=== PATIENT | female | born 2000 | race Caucasian/White ===

== ENCOUNTER 2019-05-17 11:19 | Outpatient (CLI) | payer OTHER ==
--- NOTE | 2019-05-17 12:36 | Non Stress Test Report ---
Non Stress Test Datetime Report Generated by CPN: 05/17/2019 12:35 DEMOGRAPHIC EGA NST: 34.6 INDICATION Indication for Study: Ordered by Provider MONITORING Monitor Explained: Monitor Explained; Test Explained Time on Monitor: 05/17/2019 11:27 Time off Monitor: 05/17/2019 12:33 NST Duration: 66 NST INTERVENTIONS NST Interventions: Reposition Patient Physician Notified NST: PAlissa, CNM BABY A: [id number] BABY A Movement : Present Contraction Frequency : 0 FHR Baseline : 130 Accelerations : 15X15 Decelerations : None Variability : Moderate 6-25bpm NST Review: Meets Criteria for Reactive NST NST Review and Verified By : QUIN Morley Results: Reactive NST REPORT Report Trigger: Send Report
== END 2019-05-17 12:37 | disposition home or self-care (01) ==
LOC: LC 11:19
PROVIDERS: ATTEND Obstetrics & Gynecology Gynecology
PROC: 4A1HXCZ Monitoring of Products of Conception, Cardiac Rate, External Approach (ICD-10-PCS; principal; 2019-05-17)
DX: Z34.83 Encounter for supervision of other normal pregnancy, third trimester (principal)
CPT/HCPCS: 59025

== ENCOUNTER 2019-05-24 20:31 | Outpatient (CLI) | payer OTHER ==
[2019-05-24 21:21] LABS: APPEARANCE,URINE CLEAR; BILIRUBIN,URINE NEGATIVE (NEGATIVE); COLOR,URINE YELLOW; GLUCOSE, URINE NEGATIVE (NEGATIVE); KETONES,URINE NEGATIVE (NEGATIVE); LEUKOCYTE ESTERASE,URINE NEGATIVE (NEGATIVE); NITRITE,URINE NEGATIVE (NEGATIVE); PROTEIN,URINE NEGATIVE (NEGATIVE); UROBILINOGEN,URINE NEGATIVE mg/dL (<2.0)
[2019-05-24 21:46] LABS: URINE AMPHETAMINES SCREEN NEGATIVE; URINE BARBITURATES SCREEN NEGATIVE; URINE BENZODIAZEPINES SCREEN NEGATIVE; URINE COCAINE SCREEN NEGATIVE; URINE MARIJUANA (THC) SCREEN NEGATIVE; URINE METHADONE SCREEN NEGATIVE; URINE PHENCYCLIDINE SCREEN NEGATIVE
--- NOTE | 2019-05-24 22:50 | Non Stress Test Report ---
Non Stress Test Datetime Report Generated by CPN: 05/24/2019 22:49 DEMOGRAPHIC EGA NST: 35.6 INDICATION Indication for Study: Ordered by Provider URINE RESULTS Urine Protein, NST: Negative Urine Ketones - NST: Negative Urine Glucose - NST: Negative Urine Blood - NST: Negative MONITORING Monitor Explained: Monitor Explained; Test Explained; Patient Verbalized Understanding Time on Monitor: 05/24/2019 21:00 Time off Monitor: 05/24/2019 21:45 NST Duration: 45 NST INTERVENTIONS NST Interventions: None Physician Notified NST: Sarkar BABY A: [id number] BABY A Movement : Present Contraction Frequency : 1-5 FHR Baseline : 130 Accelerations : 15X15 Decelerations : None Variability : Moderate 6-25bpm NST Review: Meets Criteria for Reactive NST NST Review and Verified By : Terri Veliz RN NST Results: Reactive NST REPORT Report Trigger: Send Report
== END 2019-05-24 22:48 | disposition home or self-care (01) ==
LOC: LC 20:31
PROVIDERS: ATTEND Obstetrics & Gynecology Gynecology
PROC: 4A1HXCZ Monitoring of Products of Conception, Cardiac Rate, External Approach (ICD-10-PCS; principal; 2019-05-24)
DX: O47.03 False labor before 37 completed weeks of gestation, third trimester (principal); Z3A.35 35 weeks gestation of pregnancy
CPT/HCPCS: 59025; 80307; 81001

== ENCOUNTER 2019-06-26 09:36 | Outpatient (CLI) | payer OTHER ==
[2019-06-26 10:12] LABS: APPEARANCE,URINE SLIGHTLY-CLOUDY; BILIRUBIN,URINE NEGATIVE (NEGATIVE); COLOR,URINE YELLOW; GLUCOSE, URINE NEGATIVE (NEGATIVE); KETONES,URINE NEGATIVE (NEGATIVE); LEUKOCYTE ESTERASE,URINE TRACE (NEGATIVE); NITRITE,URINE NEGATIVE (NEGATIVE); PROTEIN,URINE NEGATIVE (NEGATIVE); URINE SPECIFIC GRAVITY 1.017; UROBILINOGEN,URINE NEGATIVE mg/dL (<2.0)
[2019-06-26 11:48] LABS: URINE AMPHETAMINES SCREEN NEGATIVE; URINE BARBITURATES SCREEN NEGATIVE; URINE BENZODIAZEPINES SCREEN NEGATIVE; URINE COCAINE SCREEN NEGATIVE; URINE MARIJUANA (THC) SCREEN NEGATIVE; URINE METHADONE SCREEN NEGATIVE; URINE PHENCYCLIDINE SCREEN NEGATIVE
--- NOTE | 2019-06-26 22:51 | Non Stress Test Report ---
Non Stress Test Datetime Report Generated by CPN: 06/26/2019 22:51 DEMOGRAPHIC EGA NST: 40.4 INDICATION Indication for Study: Other - Please document "Reason for NST Other" in box below. Indication for Study: Other - Please document "Reason for NST Other" in box below. Indication for Study (NST) Other: Contractions Indication for Study (NST) Other: post dates labor check VITAL SIGNS Temperature - NST: 98.8 Pulse - NST: 101 RESP - NST: 16 NBPSYS NST: 131 NBPDIA NST: 82 MONITORING Monitor Explained: Monitor Explained; Test Explained; Patient Verbalized Understanding Monitor Explained: Monitor Explained; Test Explained; Patient Verbalized Understanding Time on Monitor: 06/26/2019 09:45 Time off Monitor: 06/26/2019 10:20 NST Duration: 35 NST INTERVENTIONS NST Interventions: None NST Interventions: PO Hydration Physician Notified NST: A Joshi CNM BABY A: [id number] BABY A Movement : Present Contraction Frequency : 5-6 FHR Baseline : 145 Accelerations : 15X15 Decelerations : None Variability : Moderate 6-25bpm NST Review: Meets Criteria for Reactive NST NST Review and Verified By : Kamille Camp RNC NST Results: Reactive NST REPORT Report Trigger: Send Report
== END 2019-06-26 10:26 | disposition home or self-care (01) ==
LOC: LC 09:36
PROVIDERS: ATTEND Obstetrics & Gynecology
PROC: 4A1HXCZ Monitoring of Products of Conception, Cardiac Rate, External Approach (ICD-10-PCS; principal; 2019-06-26)
DX: O47.1 False labor at or after 37 completed weeks of gestation (principal); O48.0 Post-term pregnancy; Z3A.40 40 weeks gestation of pregnancy
CPT/HCPCS: 59025; 80307; 81005

== ENCOUNTER 2019-06-26 23:09 | Inpatient (IN) | payer OTHER ==
[2019-06-27 01:15] LABS: APPEARANCE,URINE SLIGHTLY-CLOUDY; BILIRUBIN,URINE NEGATIVE (NEGATIVE); COLOR,URINE YELLOW; GLUCOSE, URINE NEGATIVE (NEGATIVE); KETONES,URINE NEGATIVE (NEGATIVE); LEUKOCYTE ESTERASE,URINE NEGATIVE (NEGATIVE); NITRITE,URINE NEGATIVE (NEGATIVE); PROTEIN,URINE NEGATIVE (NEGATIVE); UROBILINOGEN,URINE NEGATIVE mg/dL (<2.0)
[2019-06-27] MEDS ORDERED: RINGERS SOLUTION,LACTATED 1,000 ML IV PRN (01:46)
[2019-06-27 01:52] LABS: URINE AMPHETAMINES SCREEN NEGATIVE; URINE BARBITURATES SCREEN NEGATIVE; URINE BENZODIAZEPINES SCREEN NEGATIVE; URINE COCAINE SCREEN NEGATIVE; URINE MARIJUANA (THC) SCREEN NEGATIVE; URINE METHADONE SCREEN NEGATIVE; URINE PHENCYCLIDINE SCREEN NEGATIVE
[2019-06-27] MEDS ORDERED: LIDOCAINE 1% INJ-PF (10 MG/ML) 30 ML SDV ONE (02:02)
[2019-06-27] MEDS ORDERED: MISOPROSTOL 0.2 MG TABLET ONE (02:02)
[2019-06-27] MEDS ORDERED: OXYTOCIN 10 UNIT/ML VIAL ONE (02:02)
[2019-06-27] MEDS ORDERED: OXYTOCIN/NORMAL SALINE 20 UNIT/1,000 ML RTUINJ ONE (02:02)
[2019-06-27 02:16] LABS: ABSOLUTE EOSINOPHILS # (AUTO) 0.2 10^3/uL (0.0-0.6); ABSOLUTE LYMPHOCYTES (AUTO) 2.4 10^3/uL (0.5-4.7); ABSOLUTE MONOCYTES (AUTO) 1.1 10^3/uL (0.1-1.4); BASOPHILS % (AUTO) 0.3 % (0-2); EOSINOPHILS % (AUTO) 1.5 % (0-6); HEMOGLOBIN 11.2 g/dL (12.0-15.5); LYMPHOCYTES % (AUTO) 17.4 % (13-45); MEAN CORPUSCULAR HEMOGLOBIN 27.1 pg (27.0-33.4); MEAN CORPUSCULAR HGB CONC 32.9 g/dL (32.0-36.0); MEAN CORPUSCULAR VOLUME 82 fl (80-97); MONOCYTES % (AUTO) 7.8 % (3-13); PLATELET COUNT 222 10^3/uL (150-450); RED BLOOD COUNT 4.14 10^6/uL (3.72-5.28); TOTAL CELLS COUNTED % (AUTO) 100 %; WHITE BLOOD COUNT 13.7 10^3/uL (4.0-10.5)
[2019-06-27] MEDS ORDERED: RINGERS SOLUTION,LACTATED 1,000 ML IV ONE (02:30)
[2019-06-27] MEDS ORDERED: EPHEDRINE SULFATE INJ 50 MG/1 ML AMPULE ONE (05:18)
[2019-06-27] MEDS ORDERED: PHENYLEPHRINE HCL INJ/PF 10 MG/1 ML SDV ONE (05:18)
[2019-06-27] MEDS ORDERED: FENTANYL CITRATE INJ/PF 100 MCG/2 ML AMPUL ONE (05:18)
[2019-06-27] MEDS ORDERED: FENTANYL/BUPIVACAINE/NS/PF 300 MCG/150 ML RTUINJ EPI ONE (05:19)
[2019-06-27] MEDS ORDERED: BUPIVACAINE HCL 0.25 % INJ/PF (2.5 MG/1 ML) 30 ML VIAL ONE (05:19)
--- NOTE | 2019-06-27 06:55 | Admission Physical ---
Datetime Report Generated by CPN: 06/27/2019 06:55 CURRENT ADMISSION Chief Complaint: Uterine Contractions Indication for Induction: Not Applicable Admit Impression : Term, Intrauterine ; Active Labor Admit Plan: Admit to Unit; Initiate Labor Augmentation Protocol ALLERGIES Medication Allergies: No Medication Allergies: No Known Allergies (06/26/2019) Latex: No Latex Allergies OBSTETRICAL HISTORY EDC: 06/22/2019 00:00 : 1 Para: 0 Term: 0 : 0 SAB: 0 IAB: 0 Ectopic: 0 Livin Cesareans: 0 VBACs: 0 Multiple Births: 0 Gestational Diabetes: No Rh Sensitization: No Incompetent Cervix: No MIKE: No Infertility: No ART Treatment: No Uterine Anomaly: No IUGR: No Hx Previous C/S: No Macrosomia: No Hx Loss/Stillborn: No PIH: No Hx : No Placenta Previa/Abruption: No Depression/PP Depression: Yes PTL/PROM: No Post Hemorrhage: No Current Procedures: Ultrasound; NST Obstetrical History Comments: G1- current SEE RECORDS Alcohol: No Marijuana : No Cocaine: No Other Illicit Drugs: No Cigarettes: Never Smoker. [id number] MEDICAL HISTORY Diabetes: No Blood Transfusion: No Pulmonary Disease (Asthma, TB): No Breast Disease: No Hypertension: No House Carpenter Helper Surgery: No Heart Disease: No Hosp/Surgery: No Autoimmune Disorder: No Anesthetic Complications: No Kidney Disease: No Abnormal Pap Smear: No Neuro/Epilepsy: No Psychiatric Disorders: No Other Medical Diseases: No Hepatitis/Liver Disease: No Significant Family History: No Varicosities/Phlebitis: No Trauma/Violence : No Thyroid Dysfunction: No Medical History Comments: depression INFECTIOUS HISTORY Gonorrhea: No Genital Herpes: No Chlamydia: No Tuberculosis: No Syphilis: No Hepatitis: No HIV/AIDS Exposure: No Rash or Viral Illness: No HPV: No PHYSICAL EXAM General: Normal HEENT: Normal Neurologic: Normal Thyroid: Normal Heart: Normal Lungs: Normal Breast: Normal Back: Normal Abdomen: Normal Genitourinary Exam: Normal Extremities: Normal DTRs: Normal Pelvic Type: Adequate Vital Signs: Reviewed Details Vital Signs: AROM done at 0640 VAGINAL EXAM Dilatation: 5 Effacement: 100 Station: -1 MEMBRANES Pooling: Positive Membranes: Ruptured Amniotic Fluid Color: Clear FETUS A EGA: 40.5 Monitoring: External US FHR- Baseline: 150 Variability: Moderate 6-25bpm Accelerations: 15X15 Decelerations: None FHR Category: Category I Estimated Weight (gm): 3500 Presentation: Vertex PLANS FOR LABOR AND DELIVERY Labor and Delivery: None Pain Management: Natural Feeding Preference: Breast Benefit of Breast Feed Discussed: Yes Circumcision: Yes INFORMED CONSENT Signature: with User ID: [email or web address]
[2019-06-27] MEDS ORDERED: OXYTOCIN/NORMAL SALINE 20 UNIT/1,000 ML RTUINJ IV PRN ×2 (14:47→18:17)
[2019-06-27] MEDS ORDERED: ONDANSETRON HCL INJ/PF 4 MG/2 ML SDV IV ONE (15:45)
[2019-06-27] MEDS ORDERED: ONDANSETRON HCL INJ/PF 4 MG/2 ML SDV ONE (15:48)
[2019-06-27] MEDS ORDERED: LIDOCAINE 2% JELLY 5 ML TUBE ONE (16:31)
[2019-06-27] MEDS ORDERED: DIBUCAINE 1% OINTMENT 56 GM TP PRN (18:17)
[2019-06-27] MEDS ORDERED: MEASLES,MUMPS&RUBELLA VACC/PF 0.5 ML VIAL SUBCUT PRN (18:17)
[2019-06-27] MEDS ORDERED: PROMETHAZINE HCL 25 MG TABLET PO PRN (18:17)
[2019-06-27] MEDS ORDERED: BENZOCAINE/MENTHOL AEROSOL SPRAY 56 ML TOP PRN (18:17)
[2019-06-27] MEDS ORDERED: ZOLPIDEM TARTRATE 5 MG TABLET PO PRN (18:17)
[2019-06-27] MEDS ORDERED: ACETAMINOPHEN WITH CODEINE #3 TABLET PO PRN (18:17)
[2019-06-27] MEDS ORDERED: PSEUDOEPHEDRINE HCL 30 MG TABLET PO PRN (18:17)
[2019-06-27] MEDS ORDERED: NA PHOS,M-B/NA PHOS,DI-BA (ADULT) 133 ML ENEMA PR PRN (18:17)
[2019-06-27] MEDS ORDERED: DIPHENHYDRAMINE HCL 25 MG CAPSULE PO PRN (18:17)
[2019-06-27] MEDS ORDERED: GLYCERIN/WITCH HAZEL LEAF 1 EACH MED..WIPE TP PRN (18:17)
[2019-06-27] MEDS ORDERED: PROMETHAZINE HCL INJ 25 MG/1 ML VIAL IV PRN (18:17)
[2019-06-27] MEDS ORDERED: PROMETHAZINE HCL 25 MG SUPP.RECT PR PRN (18:17)
[2019-06-27] MEDS ORDERED: ACETAMINOPHEN 650 MG SUPP.RECT PR PRN (18:17)
[2019-06-27] MEDS ORDERED: DIPH/PERTUSS(ACELL)/TETANUS VAC/PF 0.5 ML SYR (>=10YO) IM PRN (18:17)
[2019-06-27] MEDS ORDERED: MAGNESIUM HYDROXIDE SUSP 30 ML UDCUP PO PRN (18:17)
[2019-06-27] MEDS ORDERED: ACETAMINOPHEN WITH CODEINE #3 TABLET ONE (18:42)
[2019-06-27] MEDS: ACETAMINOPHEN WITH CODEINE #3 TABLET PO PRN (18:46)
[2019-06-27] MEDS: FAMOTIDINE 20 MG TABLET PO SCH (22:31)
[2019-06-28] MEDS: IBUPROFEN 800 MG TABLET PO SCH ×4 (00:43→17:28)
[2019-06-28 07:15] LABS: HEMATOCRIT 34.1 % (36.0-47.0); MEAN CORPUSCULAR HEMOGLOBIN 26.8 pg (27.0-33.4); MEAN CORPUSCULAR HGB CONC 32.3 g/dL (32.0-36.0); MEAN CORPUSCULAR VOLUME 83 fl (80-97); PLATELET COUNT 256 10^3/uL (150-450); RED BLOOD COUNT 4.11 10^6/uL (3.72-5.28); RED CELL DISTRIBUTION WIDTH 13.7 % (11.5-14.0); WHITE BLOOD COUNT 26.4 10^3/uL (4.0-10.5)
[2019-06-28] MEDS: FAMOTIDINE 20 MG TABLET PO SCH ×2 (09:42→21:16)
[2019-06-28] MEDS: FERROUS SULFATE 325 MG TABLET PO SCH ×2 (09:42→17:28)
[2019-06-28] MEDS: DOCUSATE SODIUM 100 MG CAPSULE PO SCH ×2 (09:42→17:28)
[2019-06-28] MEDS: PRENATAL VITAMIN W DHA CAPSULE PO SCH (09:42)
[2019-06-28] MEDS: SENNOSIDES/DOCUSATE 8.6-50 MG 1 EACH TABLET PO SCH (09:42)
--- NOTE | 2019-06-28 11:14 | PDOC PROGRESS REPORT ---
Subjective-OB Progress Note for:: 06/28/19 Subjective: c/o tailbone pain-has donut ring Physical Exam (OB) Vital Signs: Temp Pulse Resp BP Pulse Ox 97.4 F 77 14 109/72 100 06/28/19 08:50 06/28/19 08:50 06/28/19 08:50 06/28/19 08:50 06/28/19 08:50 Intake & Output 06/27/19 06/28/19 06/29/19 06:59 06:59 06:59 Intake Total 1000 Balance 1000 Weight 77.4 kg - PIH/Pre-Eclampsia Headache: Absent Epigastric Pain: No Visual Changes: No - Lochia Lochia Amount: Scant < 10 ml Lochia Color: Rubra/Red - Abdomen Description: Soft Hernia Present: No Bowel Sounds: Normoactive Flatus Presence: Present Stool: No Fundal Description: Firm, Midline Fundal Height: u/u - u/2 Abdomen Note: Elevated wbc- will repeat in am. Is afebile. Objective-Diagnostic Laboratory: 06/28/19 06:29 06/28/19 06/28/19 06:29 06:29 WBC 26.4 H RBC 4.11 Hgb 11.0 L Hct 34.1 L MCV 83 MCH 26.8 L MCHC 32.3 RDW 13.7 Plt Count 256 Blood Type A NEGATIVE
[2019-06-28] MEDS: ACETAMINOPHEN WITH CODEINE #3 TABLET PO PRN (16:54)
[2019-06-28] MEDS ORDERED: HYDROXYZINE PAMOATE 25 MG CAPSULE PO ONE (18:30)
[2019-06-29] MEDS: IBUPROFEN 800 MG TABLET PO SCH ×2 (05:05→11:48)
[2019-06-29 06:31] LABS: HEMATOCRIT 30.1 % (36.0-47.0); HEMOGLOBIN 9.8 g/dL (12.0-15.5); MEAN CORPUSCULAR HEMOGLOBIN 27.2 pg (27.0-33.4); MEAN CORPUSCULAR HGB CONC 32.6 g/dL (32.0-36.0); MEAN CORPUSCULAR VOLUME 83 fl (80-97); PLATELET COUNT 202 10^3/uL (150-450); RED BLOOD COUNT 3.61 10^6/uL (3.72-5.28); RED CELL DISTRIBUTION WIDTH 13.7 % (11.5-14.0); WHITE BLOOD COUNT 14.9 10^3/uL (4.0-10.5)
--- NOTE | 2019-06-29 08:52 | PDOC PROGRESS REPORT ---
Subjective-OB Progress Note for:: 06/29/19 Subjective: Doing well, no c/o, A neg, needs Rhogam, . eating well, mod lochia Physical Exam (OB) Vital Signs: Temp Pulse Resp BP Pulse Ox 97.8 F 74 16 103/50 L 100 06/28/19 20:00 06/28/19 20:00 06/28/19 20:00 06/28/19 20:00 06/28/19 20:00 Intake & Output 06/28/19 06/29/19 06/30/19 06:59 06:59 06:59 Intake Total 1000 Balance 1000 - PIH/Pre-Eclampsia Headache: Absent Epigastric Pain: No Visual Changes: No - Lochia Lochia Amount: Small 10-25 ml Lochia Color: Rubra/Red - Abdomen Description: Soft, Round Hernia Present: No Fundal Description: Firm, Midline Fundal Height: u/u - u/2 Objective-Diagnostic Laboratory: 06/29/19 05:37 06/28/19 06/29/19 06:29 05:37 WBC 14.9 H RBC 3.61 L Hgb 9.8 L Hct 30.1 L MCV 83 MCH 27.2 MCHC 32.6 RDW 13.7 Plt Count 202 Blood Type A NEGATIVE Assessment and Plan(PN) - Assessment and Plan (1) Vaginal delivery Is this a current diagnosis for this admission?: Yes (2) First degree perineal laceration during delivery Is this a current diagnosis for this admission?: Yes - Time Spent with Patient Time with patient: Less than 15 minutes Medications reviewed and adjusted accordingly: Yes - Disposition Anticipated Discharge: Home Within: within 24 hours
--- NOTE | 2019-06-29 08:59 | PDOC DISCHARGE SUMMARY ---
Impression - Admit/DC Date/PCP Admission Date/Primary Care Provider: 06/27/19 01:48 KAI WEISS MD Discharge Date: 06/29/19 - Discharge Diagnosis (1) Vaginal delivery Is this a current diagnosis for this admission?: Yes (2) First degree perineal laceration during delivery Is this a current diagnosis for this admission?: Yes - Additional Information Resuscitation Status: Full Code Discharge Diet: As Tolerated, Regular Discharge Activity: Activity As Tolerated, No Lifting Over 10 Pounds, No Lifting/Push/Pulling, Pelvic Rest Referrals: [facility] [Provider Group] (rtc Tuesday) Home Medications: No122/Iron/Folic Acid [ Multi Tablet] 1 tab PO DAILY 05/17/19 HPI Gestational Age: 40.5 Reason(s) for Admission: Onset of Labor Admission Note: augmented with Pitocin, AROM Procedures: NST, Ultrasound Intrapartum Procedure(s): Vacuum Extraction - VE for maternal exhaustion and FHT decreased 90-110 Complication(s): Laceration-Labial Laceration-Degree: 1st Hospital Course Hospital Course: routine Results Laboratory Results: WBC 14.9 10^3/uL (4.0-10.5) H 06/29/19 05:37 RBC 3.61 10^6/uL (3.72-5.28) L 06/29/19 05:37 Hgb 9.8 g/dL (12.0-15.5) L 06/29/19 05:37 Hct 30.1 % (36.0-47.0) L 06/29/19 05:37 MCV 83 fl (80-97) 06/29/19 05:37 MCH 27.2 pg (27.0-33.4) 06/29/19 05:37 MCHC 32.6 g/dL (32.0-36.0) 06/29/19 05:37 RDW 13.7 % (11.5-14.0) 06/29/19 05:37 Plt Count 202 10^3/uL (150-450) 06/29/19 05:37 Lymph % (Auto) 17.4 % (13-45) 06/27/19 01:58 [place] % (Auto) 7.8 % (3-13) 06/27/19 01:58 Eos % (Auto) 1.5 % (0-6) 06/27/19 01:58 Baso % (Auto) 0.3 % (0-2) 06/27/19 01:58 Absolute Neuts (auto) 10.0 10^3/uL (1.7-8.2) H 06/27/19 01:58 Absolute Lymphs (auto) 2.4 10^3/uL (0.5-4.7) 06/27/19 01:58 Absolute Monos (auto) 1.1 10^3/uL (0.1-1.4) 06/27/19 01:58 Absolute Eos (auto) 0.2 10^3/uL (0.0-0.6) 06/27/19 01:58 Absolute Basos (auto) 0.0 10^3/uL (0.0-0.2) 06/27/19 01:58 Seg Neutrophils % 73.0 % (42-78) 06/27/19 01:58 Urine Color YELLOW 06/26/19 23:15 Urine Appearance SLIGHTLY-CLOUDY 06/26/19 23:15 Urine pH 7.0 (5.0-9.0) 06/26/19 23:15 Ur Specific [place] 1.010 06/26/19 23:15 Urine Protein NEGATIVE mg/dL (NEGATIVE) 06/26/19 23:15 Urine Glucose (UA) NEGATIVE mg/dL (NEGATIVE) 06/26/19 23:15 Urine Ketones NEGATIVE mg/dL (NEGATIVE) 06/26/19 23:15 Urine Blood MODERATE (NEGATIVE) H 06/26/19 23:15 Urine Nitrite NEGATIVE (NEGATIVE) 06/26/19 23:15 Urine Bilirubin NEGATIVE (NEGATIVE) 06/26/19 23:15 Urine Urobilinogen NEGATIVE mg/dL (<2.0) 06/26/19 23:15 Ur Leukocyte Esterase NEGATIVE (NEGATIVE) 06/26/19 23:15 Urine Ascorbic Acid NEGATIVE (NEGATIVE) 06/26/19 23:15 Urine Opiates Screen NEGATIVE 06/26/19 23:15 Urine Methadone Screen NEGATIVE 06/26/19 23:15 Ur Barbiturates Screen NEGATIVE 06/26/19 23:15 Ur Phencyclidine Scrn NEGATIVE 06/26/19 23:15 Ur Amphetamines Screen NEGATIVE 06/26/19 23:15 U Benzodiazepines Scrn NEGATIVE 06/26/19 23:15 Urine Cocaine Screen NEGATIVE 06/26/19 23:15 U Marijuana (THC) Screen NEGATIVE 06/26/19 23:15 RPR NONREACTIVE (NONREACTIVE) 06/27/19 01:58 Blood Type A NEGATIVE 06/28/19 06:29 Antibody Screen POSITIVE 06/27/19 01:58 Antibody Identification RHOGAM INDUCED ANTI-D 06/27/19 01:58 Screen NEGATIVE 06/28/19 06:29 Plan Health Concerns: routine, take PNV's Plan of Treatment: routine PP care, may sit in cool tubbath Goals: routine PP course Time Spent: Less than 30 Minutes
[2019-06-29] MEDS: DOCUSATE SODIUM 100 MG CAPSULE PO SCH (09:43)
[2019-06-29] MEDS: PRENATAL VITAMIN W DHA CAPSULE PO SCH (09:43)
[2019-06-29] MEDS: FERROUS SULFATE 325 MG TABLET PO SCH (09:43)
[2019-06-29] MEDS: ACETAMINOPHEN WITH CODEINE #3 TABLET PO PRN (09:43)
[2019-06-29] MEDS: FAMOTIDINE 20 MG TABLET PO SCH (09:43)
[2019-06-29] MEDS: SENNOSIDES/DOCUSATE 8.6-50 MG 1 EACH TABLET PO SCH (09:43)
[2019-06-29 12:33] VITALS: BP 103/50
--- NOTE | 2019-07-03 07:51 | Delivery Summary ---
Del Sum A-C Datetime Report Generated by CPN: 07/03/2019 07:51 DELIVERY PERSONNEL DELIVERY PERSONNEL: [id number] Delivery Doctor:: Addis Salvador MD Labor and Delivery Nurse:: Bernarda Borden RNdrosophere operator Nurse:: Wilma Dash RN Nursery Nurse:: Kate Soto RN Nursery Nurse:: el lomax rn Curam Developer/[employer] SUPERVISOR: Lupe Morales CST Additional Personnel: : Kamille Shukla RNC MATERNAL INFORMATION Delivery Anesthesia: Epidural Medications After Delivery: Pitocin Bolus-Please Comment Meds After Delivery Comment: itocin 20 units in 1000 ml nss open for bolus Estimated Blood Loss (ml): 300 Delivery QBL: 300 Maternal Complications: None Provider Comments: Called to patients room with patient pushing. Station +2. Continued pushing with change in station to +3. SHe was becoming exhausted and heart rate dropped to 90-110 bpm. Discussed use of vacuum to assist. RIsk and benefits reviewed. She and agree. Kiwi vacuum applied approx 2-3 cm from posterior fontanel over sagittal suture. Suction applied. Gentle traction applied during maternal pushing x2 and delivered in the MAYRA presentation. After delivery of the head, the shoulders and rest of the body followed without difficulty. Cord clamping delayed for 30 seconds as infant was vigorous. Infant to Mother's chest. Both stable. LABOR SUMMARY EDC: 06/22/2019 00:00 No. Babies in Womb: 1 Attempted: No Labor Anesthesia: Epidural LABOR INFORMATION Reason for Induction: Not Applicable Onset of Labor: 06/27/2019 06:30 Complete Dilatation: 06/27/2019 15:22 Oxytocin: Augmentation Group B Beta Strep: Negative Antibiotics # of Doses: 0 Steroids Given: None Reason Steroids Not Administered: Not Applicable MEMBRANES Membranes Rupture Method: Artificial Rupture of Membranes: 06/27/2019 06:30 Length of Rupture (hr): 11.38 Amniotic Fluid Color: Clear Amniotic Fluid Amount: Moderate Amniotic Fluid Odor: None STAGES OF LABOR Stage 1 hr: 8 Stage 1 min: 52 Stage 2 hr: 2 Stage 2 min: 31 Stage 3 hr: 0 Stage 3 min: 5 Total Time in Labor hr: 11 Total Time in Labor min: 28 VAGINAL DELIVERY Episiotomy: None Other Laceration: Bilateral first degree labial accerations Laceration Repair: Yes Laceration Repair Note: Bilateral labial lacerations approximately 1 cm in length and first degree. Repaired with 3-0 chromic in a running fashion Sponge Count Correct: N/A; Yes Sharps Count Correct: Yes CSECTION DELIVERY Primary Indication: N/A Secondary Indication: N/A CSection Incidence: N/A Labor: N/A Elective: N/A CSection Incision: N/A BABY A INFORMATION Infant Delivery Date/Time: 06/27/2019 17:53 Method of Delivery: Vaginal Method of Delivery: Vaginal Born in Route : No : N/A Forceps: N/A Forceps: N/A Vacuum Extraction: Successful Shoulder Dystocia : No PRESENTATION/POSITION BABY A Presentation: Cephalic Cephalic Presentation: Vertex Vertex Position: Left Occipital Anterior Breech Presentation: N/A PLACENTA INFORMATION BABY A Placenta Delivery Time : 06/27/2019 17:58 Placenta Method of Delivery: Expressed Placenta Method of Delivery: Expressed Placenta Status: Delivered SCORES BABY A Heart Rate 1 min: >100 bpm Resp Effort 1 min: Good Cry Reflex Irritability 1 min: Cough or Sneeze or Pulls Away Muscle Tone 1 min: Active Motion Color 1 min: Blue/Pale Resuscitation Effort 1 min: Tactile Stimulation SCORE 1 MIN: 8 Heart Rate 5 min: >100 bpm Resp Effort 5 min: Good Cry Reflex Irritability 5 min: Cough or Sneeze or Pulls Away Muscle Tone 5 min: Active Motion Color 5 min: Body Ecru, Extremities Blue SCORE 5 MIN: 9 INFANT INFORMATION BABY A Gestational Age at Delivery: 40.5 Gestational Status: Full Term- 39- 40.6 Weeks Outcome : Liveborn Infant Condition : Stable Sex: Male Infant Sex: Male IDENTIFICATION BABY A Infant Verification Date/Time: 06/27/2019 18:16 ID Band Number: [id number] Mother's Name Verified: Yes RN Verifying Infant: M. Hardy RN, S. Camp RN WEIGHT/LENGTH BABY A Infant Birthweight (gm): 3985 Infant Weight (lb): 8 Weight (oz): 13 Infant Length (in): 21.00 Length (cm): 53.34 CORD INFORMATION BABY A No. Cord Vessels: 3 Nuchal Cord : N/A Cord Blood Taken: Yes-For Eval (Mom's Blood Type - or O+) Suction: None ASSESSMENT BABY A Infant Respirations: Appears Normal Skin to Skin: Yes Skin to Skin: Yes BABY B INFORMATION : N/A SIGNATURES Signature: with User ID: Tonia : with User ID: [email or web address]
== END 2019-06-29 15:23 | disposition home or self-care (01) | DRG 807 ==
LOC: LC 23:09 → LR 06-27 01:48 → 2S 06-27 20:05
PROVIDERS: ADMIT Obstetrics & Gynecology; ATTEND Obstetrics & Gynecology
PROC: 10D07Z6 Extraction of Products of Conception, Vacuum, Via Natural or Artificial Opening (ICD-10-PCS; principal; 2019-06-27)
PROC: 0HQ9XZZ Repair Perineum Skin, External Approach (ICD-10-PCS; 2019-06-27)
PROC: 10907ZC Drainage of Amniotic Fluid, Therapeutic from Products of Conception, Via Natural or Artificial Opening (ICD-10-PCS; 2019-06-27)
PROC: 3E0234Z Introduction of Serum, Toxoid and Vaccine into Muscle, Percutaneous Approach (ICD-10-PCS; 2019-06-29)
DX: O26.893 Other specified pregnancy related conditions, third trimester (principal); Z37.0 Single live birth; O70.0 First degree perineal laceration during delivery; O75.81 Maternal exhaustion complicating labor and delivery; O76 Abnormality in fetal heart rate and rhythm complicating labor and delivery; Z67.11 Type A blood, Rh negative; Z3A.40 40 weeks gestation of pregnancy
CPT/HCPCS: 36415; 80307; 81005; 85025; 85027; 85461; 86592; 86850; 86870; 86900; 86901; J2370; J2405; J2590; J2790; J3010; J3490